=== PATIENT | female | born 1935 | race Caucasian/White ===

== ENCOUNTER 2021-10-09 19:18 | Inpatient (IN) | payer MEDICARE, OTHER ==
[~2021-10-09] VITALS: Ht 157.5 cm; Wt 74.3 kg
[2021-10-09] MEDS ORDERED: CITALOPRAM HBR10 MG PO (21:02)
[2021-10-09] MEDS ORDERED: CLONAZEPAM0.5 MG PO (21:02)
[2021-10-09] MEDS ORDERED: METOPROLOL SUCC25 MG PO (21:03)
[2021-10-09] MEDS ORDERED: ELIQUIS5 MG PO (21:04)
[2021-10-09] MEDS ORDERED: VITAMIN D350 MCG PO (21:04)
[2021-10-09] MEDS ORDERED: ACETAMINOPHEN500 MG PO (21:05)
[2021-10-09] MEDS ORDERED: SEROQUEL50 MG PO (21:07)
[2021-10-09] MEDS ORDERED: DOCUSATE SODIU100 MG PO (21:13)
--- NOTE | 2021-10-09 23:45 | NUR ---
PT ARRIVES TO FLOOR VIA STRETCHER WITH FAMILY AT BEDSIDE. PT PULLED OVER TO THE BED. PT CRYING OUT IN PAIN. PRN MORPHINE ADMINISTERED. SEE EMAR. PT ASSESSMENT COMPLETE. PT DISORIENTED TO ALL, DEMENTIA AT BASELINE. PT DOES NOT ANSWER ANY QUESTIONS APPROPRIATELY. AFTER MORPHINE PT BECOMES SLEEPY. WAKES EASILY TO TOUCH. CPOX IN PLACE SA02 90'S ON 2 LPM O2 VIA NC. RLE SHORTER THAN LLE. RIGHT PEDAL PULSE OBTAINED WITH DOPPLER AND MARKED. RIGHT PEDAL PULSE FAINT. LLE PEDAL PULSE STRONG. CAP REFILL TO BLE LESS THAN 3 SECONDS. PT WITH SPONTANEOUS MOVEMENT OF BLES. IV FLUSHED WITH 10 ML NS. PATENT, WNL. BEDALARM ACTIVE. PT'S FAMILY REMAINS AT BEDSIDE. CALL LIGHT IN REACH.
--- NOTE | 2021-10-10 00:15 | NUR ---
PT'S FAMILY GONE HOME FOR THE NIGHT. ALL QUESTIONS ANSWERED AND CONCERNS ADDRESSED.
[2021-10-10] MEDS ORDERED: VITAMIN D350 MC3 PO (00:18)
[2021-10-10] MEDS ORDERED: QUETIAPINE FUM100 MG PO (00:26)
--- NOTE | 2021-10-10 02:15 | NUR ---
PT ROUNDING PT RESTING IN BED, CRYING OUT OCCASIONALY. PT SHIFTING HER R LEG. ARMS ARE TENSE AND RIGID. PT IS CONSOLABLE. PRN MORPHINE ADMINISTERED FOR PT. PT FALLS TO SLEEP QUICKLY. CPOX IN PLACE, SA02 97% ON 2 LPM VIA NC. PT DISORIENTED TO ALL. DOES NOT ANSWER ANY QUESTIONS APPROPRIATELY. RLE DISPLACED AND SHORTER THAN THE LLE. PEDAL PULSE TO RLE PALPABLE, FAINT. CAP REFILL LESS THAN 3 SECONDS. R FOOT COOL AND PALE. IV SL, FLUSHED WITH 10 ML NS, WNL, PATENT. BED ALARM ACTIVE. ROOM IN VIEW OF RN STATION. CALL LIGHTIN REACH.
--- NOTE | 2021-10-10 04:15 | NUR ---
PT HEARD FROM RN STATION, OCCASIONALLY CRYING OUT IN PAIN. SHIFTING LEGS. PRN ADMINISTERED, SEE EMAR. PT RESTING QUIETLY WITH EYES CLOSED AFTER PRN ADMINISTRATION. CPOX IN PLACE. SAO2 96-98 ON O2 AT 2LPM. CALL LIGHT IN REACH. BED ALARM ACTIVE.
--- NOTE | 2021-10-10 06:02 | NUR ---
PATIENTS VITALS TAKEN AND RECORDED. HOROWITZ EMPTIED. PATIENT REMAINS ON 2L VIA NC. PATIENT REPOSITIONED IN BED. LAB IN TO DRAW BLOOD. NO FURTHER NEEDS NOTED. CALL LIGHT IN REACH. BED ALARM ON FOR SAFETY.
--- NOTE | 2021-10-10 06:27 | NUR ---
PT RESTING IN BED, WHIMPERING AND MOANING. PT SHIFTING HER LEGS. FACE WITH OCCASIONAL GRIMACE. PRN ADMINISTERED, SEE EMAR. PT BECOMES DROWSY, RESTING QUIETLY AFTER ADMINISTRATION. CALL LIGHT IN REACH. BED ALARM ACTIVE.
--- NOTE | 2021-10-10 07:30 | EKG ---
[facility] [address] [facility] [place], [place] [address] Signed Atrial fibrillation Low voltage QRS Septal infarct , age undetermined Abnormal ECG No previous ECGs available Confirmed by NACHO HO MD ([id number]) on 10/10/2021 7:30:17 AM Electronically Signed By: NACHO HO MD 10/10/21 0730 PATIENT NAME: KIRA MOON Electrocardiogram DATE OF : 37 PHYSICIAN: NACHO HO MD REPORT #: [id number] REPORT IS CONFIDENTIAL AND NOT TO BE RELEASED WITHOUT AUTHORIZATION
--- NOTE | 2021-10-10 07:36 | NUR ---
FAMILY PRESENT AT TIME OF SHIFT REPORT. PT RESTING IN BED EYES CLOSED MOANS INTERMITTANTLY THEN RETURNS TO RESTING EYES CLOSED. DAUGHTER IS AT BEDSIDE COMFORTS PT WITH WORDS THEN SHE RESTS AGAIN. PAIN MANAGEMENT DISCUSSED, TIME FOR NEXT PAIN MED ON THE BOARD FOR REMINDER TO TREAT AT REGULAR INTERVALS. [address] IN [address]. FAMILY ENCOURAGED TO CALL FOR ANY NEEDS OR CONCERNS
[2021-10-10] MEDS ORDERED: DULCOLAX10 MG PR (08:38)
[2021-10-10] MEDS ORDERED: EAR WAX REMOVAL15 ML AU (08:41)
[2021-10-10] MEDS ORDERED: TYLENOL EXTRA500 MG PO (08:41)
[2021-10-10] MEDS ORDERED: MILK OF MA400 MG/5 M PO (08:43)
--- NOTE | 2021-10-10 08:44 | NUR ---
MED REC COMPLETE
--- NOTE | 2021-10-10 10:00 | NUR ---
Spoke with pts daughter Glenda. She has many questions regarding surgery vs no surgery. Pt lives at [facility] and is essentially WC bound. Per daughter she will not participate in any rehab. Discussed with daughter she will need to speak to Dr. Mayes to determine what would be better for her mom. Per daughter, pt has severe dementia. All care is provided by [facility]. Pt could stand and transfer prior to fx.
--- NOTE | 2021-10-10 10:00 | NUR ---
PT RESTING EYES CLOSED FAMILY CONTINUE IN THE ROOM
--- NOTE | 2021-10-10 10:16 | NUR ---
CALL TO DR. GAN TO UPDATE ON PATIENT STATUS. TELEPHONE ORDERS FOR IV FLUID AND HOSPITALIST CONSULT.
--- NOTE | 2021-10-10 10:24 | NUR ---
DISCUSSION WITH PATIENT'S DAUGHTER KIRA REGARDING SURGERY VERSUS NO SURGERY WITH PAIN MANAGEMENT IN PLACE. DAUGHTER IS CONCERNED THAT PATIENT WOULD NOT BE ABLE TO RETURN TO [facility] IF SHE DID NOT HAVE SURGERY. Sylvain RIOS TRAFFIC MANAGER IS CONTACTING [facility] TO CONFIRM IF PATIENT CAN RETURN THERE. DAUGHTER ALSO INDICATES THAT PATIENT IS UNABLE TO FOLLOW DIRECTIONS FOR ANY PHYSICAL THERAPY AND HAS BEEN USING A WHEEL CHAIR MORE REGULARLY LATELY. PATIENT ALSO HAS POOR ORAL INTAKE AND IS UNABLE TO TAKE PILLS.
--- NOTE | 2021-10-10 11:14 | NUR ---
DR GAN IN TO SEE PT DAUGHTER IS PRESENT. DC GRAIN SHOVELER JOINS THE CONVERSATION TO ANSWER QUESTIONS
--- NOTE | 2021-10-10 11:20 | NUR ---
Dr. Mayes in the room and discussed pros and cons of surgery. Let daughter know he will do what the family wants. Daughter states she needs to call her siblings. When we left the room and I asked Dr. Mayes when he thinks pt will be ready for dc and he felt possibly Saturday.
--- NOTE | 2021-10-10 11:52 | NUR ---
DAUGHTER REMAINS AT BEDSIDE AGREES ALL OF HER QUESTIONS HAVE BEEN ANSWERED. FENT PATCH TO RIGHT SHOULDER AREA APPLIED, FLEXARIL MIXED WITH A TINY BITE OF PUDDING ADMINISTERED. LEVAQUIN STARTED. EDUCATION R/T INTERVENTIONS PROVIDED FOR DAUGHTER. PT RESTING QUIETLY FOR A TIME THEN AWAKENS AND CRIES OUT THEN RETURNS TO RESTING QUIETLY AGAIN. PAIN MANAGEMENT DISCUSSED AT LENGTH WITH DT REMINDER ON WHITE BOARD FOR Q2 MORPHINE TO CONTINUE UNTIL FENT PATCH IS WORKING ADEQUATELY.
--- NOTE | 2021-10-10 12:32 | NUR ---
BUCKS TRACTION PLACED ON PT DAUGHTERS X2 ARE PRESENT TO ENCOURAGE PT TO REST SUPINE. SHE APPEARS TO BE TOLERATING THIS WELL SO FAR
--- NOTE | 2021-10-10 15:39 | NUR ---
CALL TO DR. GAN RE: PATIENT NEEDING PAIN MEDICATION ADJUSTMENT. MORPHINE D/C'D AND DILAUDID ADDED. DAUGHTER AND FAMILY HAVE NOT YET MADE A DECISION ABOUT SURGERY.
--- NOTE | 2021-10-10 15:55 | NUR ---
PT HAS CONTINUED TO BE PAINFUL THIS SHIFT DESPITE INTERVENTIONS. HR ELEVATED AT 120'S ON CPOX SATS 96% ON 2 L02. MD CONTACTED FOR CHANGE FROM MORPHINE. DILAUDID ADMINISTERED. DAUGHTER REMAINS AT BEDSIDE
--- NOTE | 2021-10-10 17:27 | NUR ---
PT HAS CONTINUED TO BE PAINFUL. NOTIFIED DR GAN ORDERS FOR TORDOL AND ADDITIONAL TRACTION. ORAL CARE PROVIDED. PT DAUGHTER REMAINS IN THE ROOM.
--- NOTE | 2021-10-10 18:17 | NUR ---
PT APPEARS TO BE RESTING A LITTLE BETTER, NOT CALLING OUT. DAUGHTER CONTINUES AT BEDSIDE
--- NOTE | 2021-10-10 19:15 | NUR ---
BEDSIDE REPORT FROM JAYLEN BHARDWAJ, MANAGER OF INTERNAL AUDIT IN ROOM WITH PT AND HER DTG. DTG FEARFUL AND THINKS PT IS DYING, REVIEWED VITALS WITH HER WNL, PT RESP RATE REGULAR AND RESTING WELL AFTER PAIN MEDS FROM JAYLEN. PT DTG RE ASSURED THAT PT WAS DOING OK AT THIS MOMENT, HOROWITZ DRAINING IV D5LR DRAINING AT 75, 2L NC AND PULSE OX WNL. 10 LBS BUCKS TRACTION ADJUSTED TO HAVE NOTHING TOUCHING THE STRING OR PULLY AND PULLY ADJUSTED TO STRAIT LINE ANATOMICALLY PUTTING TRACTION ON LEG IN STRAIT LINE, REPOSITIONED TO TO MIDLINE, BUT SHIFTS, TO RIGHT SIDE. PULSES ARE PRESENT AND EASILY PALAPABLE. PT IS QUIETLY RESTING WITH DTG AT SIDE - THEN DTG FELT GOOD ENOUGHT TO GO HOME FOR THE NIGHT AND TO CALL HER SISTER FOR ANY NEEDS.
--- NOTE | 2021-10-10 21:17 | NUR ---
call to dr peck - updated with i/o, vitals and status of gurgles in lung sounds, and somulence. ok to hold the lopressor. pt repositioned to r side - 10 lbs traction checked with english language learner tutor, midline and strait with good pedal pulse. cabrera cath drain 125 dark thick looking urine, iv pump cleared 216 in, and pt to somulent for oral intake - oral care done with sponge. dr rios and english language learner tutor updated.
--- NOTE | 2021-10-11 00:40 | NUR ---
PT EYES CLOSED, RESP EVEN, OR 6L OXY MASK 100%, TURNED TO LEFT SIDE - NO CHANGES, HOROWITZ DRAINING SCANT URINE - IV FUSING AT 125. PT HAS HAD NO ORAL INTAKE THIS SHIFT AND LUNGS ARE WET, AND RATTLE - PT APPERARS TO BE RESTING WITH STUFFED CAT ON HER LAP.
--- NOTE | 2021-10-11 01:20 | NUR ---
RT ADRIANE CALLED TO HELP NT SUCTION PT FOR WET GURGLING LUNG SOUNDS, PANEL MAKER X2 AND RT IN. SECREATIONS WITH FOUL ODOR, HOROWITZ DRAINING SMALL AMT OF URINE - HOROWITZ FLUSHED TO ENSURE PATENCY BY PITO BHARDWAJ, REPOSITIONED PT TO PILLOW UNDER R SIDE.
--- NOTE | 2021-10-11 01:49 | NUR ---
PT WAS NT SUCTIONED AGAIN WITH LARGE AMOUT THICK YELLOW GREEN TINT
--- NOTE | 2021-10-11 03:08 | NUR ---
pt eyes open, gurgling breath sounds, pt repositioned to r side with hoop punch operator helper and rn, no other changes. call light in reach and visible to nurses station.
--- NOTE | 2021-10-11 03:38 | NUR ---
NEW IV BAG HUNG, PT EYES CLOSED, RESP GURGLE AND MOIST, EVEN, HOROWITZ WITH SCANT URINE TO GRAVITY, PT SOMULENT.
--- NOTE | 2021-10-11 05:45 | NUR ---
call to dr peck for pt status update - urine out 50 ml new order for bolus over 3 hrs. hr 121, low bp and pt has gurgles and looks poor.
--- NOTE | 2021-10-11 06:04 | NUR ---
CALL TO DR GAN TO UPDATE ON PT DECLINING STATUS - VITALS/ I/O. NO NEW ORDERS -
--- NOTE | 2021-10-11 06:39 | NUR ---
call to family elvira bland pt daughter for status update. offer to call pastoral care - she said she knew our care staff and Radha was her four slide operator. she said it was ok, no need to call anyone. Ms. Bland would call her 4 siblings and update them as to vitals, i/o and need for suctioning and gurgles - as well as somulence and need for iv pain meds. she was thankful for the update. wire harness design engineer aware.
--- NOTE | 2021-10-11 07:13 | NUR ---
FAMILY IN ROOM. PULSE OX ALARMING. IN TO ASSESS. pt FAMILY REQUESTED THAT THE PULSE OX BE TAKEN OFF. REMOVED PER REQUEST. PRIMARY RN UPDATED.
--- NOTE | 2021-10-11 08:29 | NUR ---
Patient resting in bed, hob elevated at this time. Family requesting oxygen to be removed and left off patient for comfort. Per daughter, patient keeps removing her mask. Patient is very gurgly, upper airway appears patent. Family declining suctioning. Patient arousable to soft chest rub, she is non verbal, pupils are pinpoint at this time. SP02 is 77% on room air. Family at bedside, updated them with plan of care and provided education regarding bucks traction, family understanding to not touch/bump it. bucks traction @ 10lb to right leg. Dr. Mayes updated regarding patient status and current sp02 reading of 77%. Dr. Mayes in to consult family at this time.
--- NOTE | 2021-10-11 08:39 | NUR ---
Spoke with daughters this am. They have decided no surgery for pt.They plan on pt returning to [facility], will contact [facility] to check when they could accept this pt. Awaiting to speak with Drs to determine date pt can dc.
--- NOTE | 2021-10-11 09:00 | NUR ---
Contacted Summer at [facility] and she states pt can return any time today as long as they have pain medication for pt until Hospice admits. Let her know I will schedule transport and Dr. Mayes has written rX for our pharmacy to fill pain meds through the beginning of next week. Will fax dc orders when completed by charge nurse.
--- NOTE | 2021-10-11 09:14 | NUR ---
Notified by Dr. Mayes pt cleared to ct and return to [facility] today. Pt will need hospice. Spoke with family and they request [facility] from [place]. Called and spoke with Saumya. She states they could see this pt by Saturday and possibly sooner. Will fax face sheet, referral, H&P, ER note, and consult note, med list. Let her know, Dr. Mayes is ordering hospice, but would like her PCP to follow and write the hospice orders.
--- NOTE | 2021-10-11 09:25 | NUR ---
Admin dilaudid 0.5mg iv at this time for right leg pain. Family at bedside, no current needs. Personal supplies and call light within reach.
[2021-10-11] MEDS ORDERED: MORPHINE S100 MG/5 M SL (09:28)
[2021-10-11] MEDS ORDERED: LORAZEPAM2 MG/1 M2 SL (09:29)
[2021-10-11] MEDS ORDERED: FENTANYL1 EACH TD (09:30)
--- NOTE | 2021-10-11 09:50 | NUR ---
Contacted Radha at EMS. Pt scheduled for EMS transport at 11:00 as pt cannot ride in a wc due painful fx hip. Pt will return to [facility] and admit to hospice from per their schedule. REceived written dc orders and signed by Dr. Farris hospitalist. Confirmed with [facility] pt will transport at 11:00, scrap charger, and updated Dr. Mayes. All papers placed in envelope and placed at desk with note requesting they send comfort meds with EMS. To room and updated family.
--- NOTE | 2021-10-11 10:57 | NUR ---
FAMILY IN RM, PT PLACED ON COMFORT CARE-TRANSFER TO [facility] AT 1100 HRS. FAMILY SEEMS TO BE ACCEPTING, DISCUSSED END OF LIFE ISSUES. GAVE COMFORT, RN LEI AND ENA TRIMBLE IN TO CARE FOR PT. WILL FOLLOW
== END 2021-10-11 11:05 | DRG 536 ==
LOC: ED 19:18 → MS 22:15
PROVIDERS: ADMIT Specialist; ATTEND Specialist
DX: S72.011A Unspecified intracapsular fracture of right femur, initial encounter for closed fracture (principal); N39.0 Urinary tract infection, site not specified; W18.30XA Fall on same level, unspecified, initial encounter; Z88.2 Allergy status to sulfonamides; Z88.5 Allergy status to narcotic agent; Z88.8 Allergy status to other drugs, medicaments and biological substances; Z20.822 Contact with and (suspected) exposure to COVID-19; Z51.5 Encounter for palliative care; I10 Essential (primary) hypertension; F03.90 Unspecified dementia, unspecified severity, without behavioral disturbance, psychotic disturbance, mood disturbance, and anxiety; Z79.899 Other long term (current) drug therapy; Z95.5 Presence of coronary angioplasty implant and graft; Z98.49 Cataract extraction status, unspecified eye
CPT/HCPCS: 36415; 70450; 71045; 73502; 73700; 80048; 80053; 81001; 84484; 85025; 85610; 87502; 93005; 93010; G0480; J1170; J1630; J1885; J1956; J2270; J3010; J7120; J7121; U0003